=== PATIENT | female | born 1995 | race Caucasian/White ===

== ENCOUNTER 2018-09-07 21:47 | Inpatient (IN) | payer OTHER ==
[~2018-09-07] VITALS: Ht 180.3 cm; Wt 0.1 kg
[~2018-09-07 21:47] MED LIST: ACET500 PO; CEFU500 PO; CIPRO500 MG PO; IBUP800 PO; MOTRIN; NITR100 PO; Norco 5-325 Ta1 EACH PO; PROACE100 PO; PROM25 PO; PROM25S PR; Percocet 5-3251 EACH PO; Pyridium200 MG PO; TYLENOL; Verotin-Gr Cap1 EACH PO; [UNRECOGNIZED DRUG - CODE] PO
[2018-09-07 22:47] LABS: BASOPHILS ABSOLUTE AUTO 0.02 K/mm3 (0.00-0.23); BASOPHILS PERCENT AUTO 0 % (0-2); EOSINOPHILS ABSOLUTE AUTO 0.03 K/mm3 (0.00-0.68); EOSINOPHILS PERCENT AUTO 0 % (0-6); Hematocrit 37.4 % (33.0-51.0); Hemoglobin 12.9 g/dL (11.5-16.0); IMMATURE GRAN ABSOLUTE AUTO 0.06 K/mm3 (0.00-0.10); IMMATURE GRAN PERCENT AUTO 1 % (0-1); LYMPHOCYTES ABSOLUTE AUTO 2.21 K/mm3 (0.84-5.20); LYMPHOCYTES PERCENT AUTO 22 % (21-46); MONOCYTES ABSOLUTE AUTO 0.66 K/mm3 (0.16-1.47); MONOCYTES PERCENT AUTO 7 % (4-13); Mean Corpuscular HGB 31.3 pg (26.0-34.0); Mean Corpuscular HGB Conc 34.5 g/dL (31.5-36.5); Mean Corpuscular Volume 91 fL (80-100); Mean Platelet Volume 11.9 fL (9.1-12.4); NEUTROPHILS ABSOLUTE AUTO 7.22 K/mm3 (1.96-9.15); NEUTROPHILS PERCENT AUTO 71 % (41-73); Platelet Count 189 K/mm3 (150-400); RDW Standard Deviation 42.7 fL (35.1-46.3); Red Blood Cell Count 4.12 M/mm3 (3.80-5.20)
--- NOTE | 2018-09-08 16:29 | NUR ---
09/08/18 1629 Mildred Dong 891 PT ARRIVED TI [facility] OR OR SUITE WITH PALACIOS INTACT DRAINING OLEGARIO COLOR URINE
[2018-09-08 16:50] LABS: PCO2 Cord - Arterial 59.2 mmHg (40-50); pH Cord - Arterial 7.29 (7.28-7.35)
[2018-09-08 16:53] LABS: PO2 Cord - Arterial < 12 mmHg (16-20)
[2018-09-08 16:58] LABS: PCO2 Cord - Venous 45.5 mmHg (40-50); PO2 Cord - Venous 23.5 mmHg (28-32); pH Umbilical Cord - Venous 7.36 (7.26-7.35)
--- NOTE | 2018-09-08 18:02 | NUR ---
VERBAL REPORT FROM ANESTHESIOLOGIST DR. DANIEL, EPIDURAL CATH REMOVED, TIP INTACT
[2018-09-09 05:22] LABS: Hematocrit 30.5 % (33.0-51.0); Hemoglobin 10.2 g/dL (11.5-16.0); Mean Corpuscular HGB 30.9 pg (26.0-34.0); Mean Corpuscular HGB Conc 33.4 g/dL (31.5-36.5); Mean Corpuscular Volume 92 fL (80-100); Platelet Count 137 K/mm3 (150-400); RDW Coefficient Variation 13.4 % (11.7-14.2); RDW Standard Deviation 45.5 fL (35.1-46.3); White Blood Cell Count 10.01 K/mm3 (4.00-11.30)
[2018-09-10 06:01] LABS: Hematocrit 29.6 % (33.0-51.0); Hemoglobin 9.8 g/dL (11.5-16.0); Mean Corpuscular HGB 30.6 pg (26.0-34.0); Mean Corpuscular HGB Conc 33.1 g/dL (31.5-36.5); Mean Corpuscular Volume 93 fL (80-100); Mean Platelet Volume 12.3 fL (9.1-12.4); Platelet Count 135 K/mm3 (150-400); RDW Coefficient Variation 13.5 % (11.7-14.2); RDW Standard Deviation 45.8 fL (35.1-46.3); White Blood Cell Count 7.04 K/mm3 (4.00-11.30)
[2018-09-10] MEDS ORDERED: Percocet 5-3251 EACH PO (11:26)
[2018-09-10] MEDS ORDERED: IBUP800 PO (11:26)
--- NOTE | 2018-09-10 14:07 | NUR ---
PT DISCHARGED TO HOME. NO QUESTIONS OR CONCERNS AT THIS TIME. DISCHARGE TEACHING DONE AND DISCHARGE FORMS GIVEN TO PT. CAR SEAT CHECKED.
== END 2018-09-10 14:00 | disposition home or self-care (01) | DRG 788 ==
LOC: OBS 21:47 → BC 22:11
PROVIDERS: Obstetrics & Gynecology; ADMIT Advanced Practice Midwife
PROC: 3E0R3BZ Introduction of Anesthetic Agent into Spinal Canal, Percutaneous Approach (ICD-10-PCS; 2018-09-08)
PROC: 10907ZC Drainage of Amniotic Fluid, Therapeutic from Products of Conception, Via Natural or Artificial Opening (ICD-10-PCS; 2018-09-08)
PROC: 10H07YZ Insertion of Other Device into Products of Conception, Via Natural or Artificial Opening (ICD-10-PCS; 2018-09-08)
PROC: 10D00Z1 Extraction of Products of Conception, Low, Open Approach (ICD-10-PCS; principal; 2018-09-08 16:00)
DX: O62.0 Primary inadequate contractions (principal); O34.211 Maternal care for low transverse scar from previous cesarean delivery; O99.824 Streptococcus B carrier state complicating childbirth; O76 Abnormality in fetal heart rate and rhythm complicating labor and delivery; Z3A.39 39 weeks gestation of pregnancy; Z37.0 Single live birth; O77.0 Labor and delivery complicated by meconium in amniotic fluid
CPT/HCPCS: 36415; 51702; 82803; 85025; 85027; 86850; 86900; 86901; 90471; 90707; J0171; J0290; J0690; J1885; J2001; J2250; J2370; J2405; J2590; J2765; J3010; J7120

== ENCOUNTER 2020-12-21 04:24 | Emergency (ER) | payer OTHER ==
[~2020-12-21] VITALS: Ht 180.3 cm; Wt 65.8 kg
[2020-12-21] MEDS ORDERED: MULVITA PO (04:50)
[2020-12-21 05:03] LABS: BASOPHILS ABSOLUTE AUTO 0.05 K/mm3 (0.00-0.23); BASOPHILS PERCENT AUTO 1 % (0-2); EOSINOPHILS ABSOLUTE AUTO 0.07 K/mm3 (0.00-0.68); EOSINOPHILS PERCENT AUTO 1 % (0-6); Hematocrit 37.6 % (33.0-51.0); Hemoglobin 13.3 g/dL (11.5-16.0); IMMATURE GRAN ABSOLUTE AUTO 0.04 K/mm3 (0.00-0.10); IMMATURE GRAN PERCENT AUTO 0 % (0-1); LYMPHOCYTES ABSOLUTE AUTO 2.55 K/mm3 (0.84-5.20); LYMPHOCYTES PERCENT AUTO 26 % (21-46); MONOCYTES ABSOLUTE AUTO 0.79 K/mm3 (0.16-1.47); MONOCYTES PERCENT AUTO 8 % (4-13); Mean Corpuscular HGB 30.4 pg (26.0-34.0); Mean Corpuscular HGB Conc 35.4 g/dL (31.5-36.5); Mean Corpuscular Volume 86 fL (80-100); Mean Platelet Volume 12.3 fL (9.1-12.4); NEUTROPHILS ABSOLUTE AUTO 6.25 K/mm3 (1.96-9.15); NEUTROPHILS PERCENT AUTO 64 % (41-73); Platelet Count 188 K/mm3 (150-400); RDW Coefficient Variation 11.8 % (11.7-14.2); RDW Standard Deviation 37.3 fL (35.1-46.3); Red Blood Cell Count 4.37 M/mm3 (3.80-5.20); White Blood Cell Count 9.75 K/mm3 (4.00-11.30)
[2020-12-21 05:22] LABS: Alanine Aminotransfer (ALT/SGP 20 U/L (12-78); Albumin, Blood 3.9 g/dL (3.4-5.0); Albumin/Globulin Ratio 1.1 (0.8-1.8); Alk Phos 47 U/L (50-136); Anion Gap 6 mmol/L (6-16); Aspartate Aminotrans (AST/SGOT 9 U/L (12-37); Bilirubin, Total 0.8 mg/dL (0.1-1.0); Blood Urea Nitrogen 10 mg/dL (8-24); Bun/Creatinine Ratio 16.7 (12.0-20.0); CO2, Blood 25 mmol/L (21-32); Calcium, Blood 8.9 mg/dL (8.5-10.1); Chloride, Blood 105 mmol/L (98-108); Globulin, Blood 3.4 g/dL (2.2-4.0); Glomerular Filtration Rate >60 (60-); Glucose, Blood 89 mg/dL (70-99); Potassium, Blood 3.5 mmol/L (3.5-5.5); Sodium, Blood 136 mmol/L (136-145); Total Protein, Blood 7.3 g/dL (6.4-8.2); Troponin I <0.015 ng/mL (0.000-0.040)
[2020-12-21] MEDS ORDERED: ONDA4ODT MM (07:41)
== END 2020-12-21 10:57 | disposition home or self-care (01) ==
LOC: ER 04:24
PROVIDERS: Emergency Medicine
DX: O99.611 Diseases of the digestive system complicating pregnancy, first trimester (principal); K21.9 Gastro-esophageal reflux disease without esophagitis; Z3A.01 Less than 8 weeks gestation of pregnancy
CPT/HCPCS: 36415; 76801; 76817; 80053; 83690; 84484; 84702; 85025; 93005; 93010; 96361; 96374; 96375; 99285-25; J2405; J2550; J7030

== ENCOUNTER 2021-08-14 05:35 | Inpatient (IN) | payer OTHER ==
[~2021-08-14] VITALS: Ht 180.3 cm; Wt 87.2 kg
[~2021-08-14 05:35] MED LIST changes: +MULVITA PO; +ONDA4ODT MM
[2021-08-14 06:23] LABS: BASOPHILS ABSOLUTE AUTO 0.04 K/mm3 (0.00-0.23); BASOPHILS PERCENT AUTO 0 % (0-2); EOSINOPHILS ABSOLUTE AUTO 0.08 K/mm3 (0.00-0.68); EOSINOPHILS PERCENT AUTO 1 % (0-6); Hematocrit 35.5 % (33.0-51.0); Hemoglobin 12.2 g/dL (11.5-16.0); IMMATURE GRAN ABSOLUTE AUTO 0.16 K/mm3 (0.00-0.10); IMMATURE GRAN PERCENT AUTO 2 % (0-1); LYMPHOCYTES ABSOLUTE AUTO 2.37 K/mm3 (0.84-5.20); LYMPHOCYTES PERCENT AUTO 23 % (21-46); MONOCYTES ABSOLUTE AUTO 0.67 K/mm3 (0.16-1.47); MONOCYTES PERCENT AUTO 6 % (4-13); Mean Corpuscular HGB 31.6 pg (26.0-34.0); Mean Corpuscular HGB Conc 34.4 g/dL (31.5-36.5); Mean Corpuscular Volume 92 fL (80-100); Mean Platelet Volume 12.4 fL (9.1-12.4); NEUTROPHILS ABSOLUTE AUTO 7.07 K/mm3 (1.96-9.15); NEUTROPHILS PERCENT AUTO 68 % (41-73); Platelet Count 146 K/mm3 (150-400); RDW Coefficient Variation 13.6 % (11.7-14.2); RDW Standard Deviation 45.2 fL (35.1-46.3); Red Blood Cell Count 3.86 M/mm3 (3.80-5.20); White Blood Cell Count 10.39 K/mm3 (4.00-11.30)
--- NOTE | 2021-08-14 08:51 | NUR ---
08/14/21 0851 Tracey Ravi VIABLE BABY BODY BORN AT 0826 04/16
[2021-08-14 08:53] LABS: PCO2 Cord - Arterial 41.4 mmHg (40-50); PO2 Cord - Arterial 21.5 mmHg (16-20)
[2021-08-14 08:54] LABS: PCO2 Cord - Venous 41.8 mmHg (40-50); PO2 Cord - Venous 21.2 mmHg (28-32); pH Umbilical Cord - Venous 7.39 (7.26-7.35)
[2021-08-15 05:45] LABS: BASOPHILS ABSOLUTE AUTO 0.03 K/mm3 (0.00-0.23); BASOPHILS PERCENT AUTO 0 % (0-2); EOSINOPHILS ABSOLUTE AUTO 0.05 K/mm3 (0.00-0.68); EOSINOPHILS PERCENT AUTO 1 % (0-6); Hematocrit 32.2 % (33.0-51.0); Hemoglobin 10.9 g/dL (11.5-16.0); IMMATURE GRAN PERCENT AUTO 1 % (0-1); LYMPHOCYTES ABSOLUTE AUTO 1.47 K/mm3 (0.84-5.20); LYMPHOCYTES PERCENT AUTO 16 % (21-46); MONOCYTES ABSOLUTE AUTO 0.55 K/mm3 (0.16-1.47); MONOCYTES PERCENT AUTO 6 % (4-13); Mean Corpuscular HGB 31.9 pg (26.0-34.0); Mean Corpuscular HGB Conc 33.9 g/dL (31.5-36.5); Mean Corpuscular Volume 94 fL (80-100); NEUTROPHILS ABSOLUTE AUTO 6.98 K/mm3 (1.96-9.15); NEUTROPHILS PERCENT AUTO 76 % (41-73); Platelet Count 109 K/mm3 (150-400); RDW Coefficient Variation 13.8 % (11.7-14.2); RDW Standard Deviation 47.1 fL (35.1-46.3); Red Blood Cell Count 3.42 M/mm3 (3.80-5.20); White Blood Cell Count 9.18 K/mm3 (4.00-11.30)
[2021-08-15] MEDS ORDERED: IBUP800 PO (11:31)
[2021-08-15] MEDS ORDERED: Percocet 5-3251 EACH PO (11:31)
--- NOTE | 2021-08-15 12:00 | NUR ---
PT VERY READY TO GO HOME. VERBAZLIZES UNDERSTANDING OF DC INSTRUCTIONS AND FOLLOW UP APPOINTMENTS. CARING FOR SELF AND BABY INDEPENDANTLY. LOCHIA SCANT AND INCISION C/D/I WITH STERI STRIPS. PAIN WELL CONTROLLED WITH MEDS AND FOB ALREADY PICKED UP RX FOR HOME. NO QUESTIONS OR CONCERNS. DC HOME STABLE.
== END 2021-08-15 12:07 | disposition home or self-care (01) | DRG 785 ==
LOC: BC 05:35
PROVIDERS: ADMIT Obstetrics & Gynecology
PROC: 10D00Z1 Extraction of Products of Conception, Low, Open Approach (ICD-10-PCS; principal; 2021-08-14 07:30)
PROC: 0UT70ZZ Resection of Bilateral Fallopian Tubes, Open Approach (ICD-10-PCS; 2021-08-14 07:30)
DX: O34.211 Maternal care for low transverse scar from previous cesarean delivery (principal); Z30.2 Encounter for sterilization; Z3A.39 39 weeks gestation of pregnancy; Z37.0 Single live birth; O99.62 Diseases of the digestive system complicating childbirth; K21.9 Gastro-esophageal reflux disease without esophagitis; Z98.890 Other specified postprocedural states; Z79.899 Other long term (current) drug therapy
CPT/HCPCS: 36415; 82803; 85025; 86850; 86900; 86901; 88302; A9270; J0690; J1885; J2001; J2370; J2405; J2590; J2765; J3010; J7120